=== PATIENT | female | born 1945 ===

== ENCOUNTER → 2018-12-02 | Outpatient (CLI) | payer MEDICARE, OTHER ==
[~2018-12-02] MED LIST: ASPI81CH PO; CEPH500 PO; CLAR500 PO; FLUO10 PO; HYDHCL10 PO; HYDR1TAB94 PO; LAMO100 PO; LOTE.5SUSP BOTHEYES; MELA3 PO; METF500 PO; MODAFINIL100 MG PO; Phenergan25 M1 PO; Prozac20 MG PO; TRAZ150T57 PO; TRAZ50 PO; TRIA80TC TOP
[2018-12-03 14:11] LABS: Microalb/Creat Ratio UR, Rand Unable to Calculate mg/g (0.000-30.000); Microalbumin, Random Urine <5.000 mg/L (0.000-20.000)
== END | disposition home or self-care (01) ==
LOC: LAB 23:15 → LAB SHORT 23:15 → EDSTATUS 11-30 14:15 → LAB FUT 11-30 14:15
PROVIDERS: Internal Medicine Endocrinology, Diabetes & Metabolism
DX: E11.65 Type 2 diabetes mellitus with hyperglycemia (principal)
CPT/HCPCS: 82043; 82570

== ENCOUNTER → 2020-09-03 | Outpatient (CLI) | payer MEDICARE | END | disposition home or self-care (01) | LOC: LAB SHORT 15:23 → LAB 15:23 | DX: H60.91 Unspecified otitis externa, right ear (principal) | CPT/HCPCS: 87070; 87205 ==

== ENCOUNTER 2024-01-24 15:14 | Emergency (ER) | payer OTHER, MEDICARE ==
[~2024-01-24] VITALS: Ht 165.1 cm; Wt 95.2 kg
[2024-01-24 15:21] VITALS: BP 138/89
[2024-01-24] MEDS ORDERED: LIDO700A20 TOP (19:23)
== END 2024-01-24 19:29 | disposition home or self-care (01) ==
LOC: ER 15:14
DX: S63.501A Unspecified sprain of right wrist, initial encounter (principal); M25.561 Pain in right knee; S20.211A Contusion of right front wall of thorax, initial encounter; S80.211A Abrasion, right knee, initial encounter; J44.9 Chronic obstructive pulmonary disease, unspecified; Z87.891 Personal history of nicotine dependence; Z79.84 Long term (current) use of oral hypoglycemic drugs; Z79.899 Other long term (current) drug therapy; Z88.1 Allergy status to other antibiotic agents; Z88.6 Allergy status to analgesic agent; Z88.8 Allergy status to other drugs, medicaments and biological substances; Z88.5 Allergy status to narcotic agent; W01.0XXA Fall on same level from slipping, tripping and stumbling without subsequent striking against object, initial encounter
CPT/HCPCS: 71046; 73110; 73562-RT; 99284-25

== ENCOUNTER 2024-04-06 10:24 | Emergency (ER) | payer MEDICARE ==
[~2024-04-06] VITALS: Ht 165.1 cm; Wt 95.2 kg
[~2024-04-06 10:24] MED LIST changes: +LIDO700A20 TOP
[2024-04-06 10:33] VITALS: BP 135/82
== END 2024-04-06 12:12 | disposition home or self-care (01) ==
LOC: ER 10:24
DX: R07.9 Chest pain, unspecified (principal); J44.9 Chronic obstructive pulmonary disease, unspecified; Z87.891 Personal history of nicotine dependence; Z79.899 Other long term (current) drug therapy; Z88.8 Allergy status to other drugs, medicaments and biological substances; Z88.1 Allergy status to other antibiotic agents; Z88.6 Allergy status to analgesic agent; Z88.5 Allergy status to narcotic agent
CPT/HCPCS: 71046; 93005; 93010; 99285-25